=== PATIENT | male | born 1970 | race Caucasian/White ===

== ENCOUNTER 2017-01-30 14:26 | Inpatient (IN) | payer BC ==
--- NOTE | 2017-01-30 14:40 | PDOC ---
History of Present Illness - General History Source: Patient, Old Records Exam Limitations: No Limitations <Juliette Velazquez - Last Filed: 01/30/17 17:45> - General History Source: Patient Exam Limitations: No Limitations - History of Present Illness Initial Comments: 01/30/17 15:44 The patient is a 46 year old male with a significant past medical history of hypertension and diabetes mellitus, who presents to the ER with rectal pain for 10 months and a perirectal purulent abscess for 1 month. Patient states he has painful bowel movements and an accompanied fever. Patient reports having rectal bleeding at the onset of the symptoms; bleeding resolved two weeks ago. He reports using natural suppositories to reduce the pain and infection. Patient noticed that the abscess was draining yellow fluid for the past month. Patient went to Dr. Adams for the symptoms who told him he had an abscess and a fissure. Patient is scheduled to remove the abscess in three days. He says he also experiences diffuse abdominal pain. Denies nausea, vomiting, diarrhea Denies chills, coughs Denies numbness or discharge PCP: Dr. Omega Basurto <Sheryl Guillermo - Last Filed: 01/30/17 18:12> - General Chief Complaint: Abscess Boil Stated Complaint: FEVER,ABSCESS Time Seen by Provider: 01/30/17 14:40 Past History - Past Medical History Diabetes: Yes HTN: Yes - Psycho/Social/Smoking Cessation Hx Anxiety: No Suicidal Ideation: No Smoking History: Never smoked Hx Alcohol Use: No Drug/Substance Use Hx: No Substance Use Type: None <Juliette Velazquez - Last Filed: 01/30/17 17:45> <Sheryl Guillermo - Last Filed: 01/30/17 18:12> - Past Medical History Allergies/Adverse Reactions: Allergies Allergy/AdvReac Type Severity Reaction Status Date / Time No Known Allergies Allergy Verified 01/30/17 14:33 Home Medications: Ambulatory Orders Aspirin [Mera Chewable] 81 mg PO DAILY 01/30/17 Bisoprolol Fumarate [Zebeta (Nf) -] 5 mg PO DAILY 01/30/17 Dapagliflozin Propanediol [Farxiga] 10 mg PO DAILY 01/30/17 Enalapril Maleate [Vasotec -] 5 mg PO BID 01/30/17 Metformin HCl [Glucophage -] 850 mg PO BID 01/30/17 Review of Systems - Review of Systems Comments:: 01/30/17 15:45 GENERAL/CONSTITUTIONAL: Fever. No weakness. HEAD, EYES, EARS, NOSE AND THROAT: No change in vision. No ear pain or discharge. No sore throat. CARDIOVASCULAR: No chest pain or shortness of breath. RESPIRATORY: No cough, wheezing, or hemoptysis. GASTROINTESTINAL: Perirectal abscess. No nausea, vomiting, diarrhea or constipation. GENITOURINARY: No dysuria, frequency, or change in urination. MUSCULOSKELETAL: No joint or muscle swelling or pain. No neck or back pain. SKIN: No rash NEUROLOGIC: No headache, vertigo, loss of consciousness, or change in strength/ sensation. ENDOCRINE: No increased thirst. No abnormal weight change. HEMATOLOGIC/LYMPHATIC: No anemia, easy bleeding, or history of blood clots. ALLERGIC/IMMUNOLOGIC: No hives or skin allergy. <Sheryl Guillermo - Last Filed: 01/30/17 18:12> *Physical Exam - Vital Signs Last Vital Signs Temp Pulse Resp BP Pulse Ox 98.9 F 102 H 20 155/88 97 01/30/17 14:30 01/30/17 14:30 01/30/17 14:30 01/30/17 14:30 01/30/17 14:30 <Juliette Velazquez - Last Filed: 01/30/17 17:45> - Vital Signs Last Vital Signs Temp Pulse Resp BP Pulse Ox 103.3 F H 102 H 20 155/88 97 01/30/17 15:26 01/30/17 14:30 01/30/17 14:30 01/30/17 14:30 01/30/17 14:30 - Physical Exam Comments: 01/30/17 15:46 GENERAL: Awake, alert, and fully oriented, in no acute distress HEAD: No signs of trauma EYES: PERRLA, EOMI, sclera anicteric, conjunctiva clear ENT: Auricles normal inspection, hearing grossly normal, nares patent, oropharynx clear without exudates. Moist mucosa NECK: Normal ROM, supple, no lymphadenopathy, JVD, or masses LUNGS: Breath sounds equal, clear to auscultation bilaterally. No wheezes, and no crackles HEART: Regular rate and rhythm, normal S1 and S2, no murmurs, rubs or gallops ABDOMEN: Soft, nontender, normoactive bowel sounds. No guarding, no rebound. No masses EXTREMITIES: Normal range of motion, no edema. No clubbing or cyanosis. No cords, erythema, or tenderness NEUROLOGICAL: Cranial nerves II through XII grossly intact. Normal speech, normal gait SKIN: Warm, Dry, normal turgor, no rashes or lesions noted. Digital Rectal Exam: Tenderness on exam. No stool in vault, 3pm area of yellow drainage with tenderness <Uts,Sheryl - Last Filed: 01/30/17 18:12> ED Treatment Course - LABORATORY CBC & Chemistry Diagram: 01/30/17 15:24 01/30/17 15:24 <Juliette Velazquez - Last Filed: 01/30/17 17:45> - LABORATORY CBC & Chemistry Diagram: 01/30/17 15:24 01/30/17 15:24 - ADDITIONAL ORDERS Additional order review: Laboratory Results 01/30/17 15:24 Stool Occult Blood Negative 01/30/17 15:24 RBC 5.09 MCV 88.6 MCHC 33.7 RDW 13.4 MPV 9.6 Neutrophils % 86.5 H Lymphocytes % 5.6 L Monocytes % 7.6 Eosinophils % 0.1 Basophils % 0.2 - RADIOLOGY Radiograph Interpretation: 01/30/17 18:04 CT IMPRESSION reported by Dr.Ruth Gal Ruiz, D.O.: No acute abdominal or pelvic findings. No evidence of eunice-rectal abscess or abnormal fluid collection. Appendix normal. <Uts,Sheryl - Last Filed: 01/30/17 18:12> Medical Decision Making - Medical Decision Making 01/30/17 15:03 46-year-old male with history of hypertension, diabetes who presents to the emergency department with a one-month history of rectal pain and purulent drainage worsening pain today and fever to 102 at home. Differential diagnosis includes but is not limited to: Perirectal abscess, fistula, sepsis, hemorrhoids , electrolyte abnormality, dehydration, toxic/metabolic derangement. Plan: 1. Labs 2. CT scan abdomen and pelvis 3. Pain management 4. IV fluids for hydration 5. Observe and reevaluate 01/30/17 17:46 Addendum: Rectal temp was 103F. Labs were reviewed and are noted in the EMR. CT scan of the abdomen and pelvis was performed--official read is pending. Will admit to medicine, consult general surgery. <Juliette Velazquez - Last Filed: 01/30/17 17:45> *DC/Admit/Observation/Transfer - Discharge Dispostion Admit: Yes - Attestations Physician Attestion: 01/30/17 15:04 I, Dr. Juliette Velazquez, attest that the scribes documentation that appears above has been prepared under my direction and personally reviewed by me in its entirety. I confirmed that the note above accurately reflects all work, treatment, procedures, and medical decision-making performed by me. <Juliette Velazquez - Last Filed: 01/30/17 17:45> - Attestations Scribe Attestion: 01/30/17 15:47 Documentation prepared by Sheryl Guillermo, acting as medical office secretary for Juliette Velazquez MD. <Sheryl Guillermo - Last Filed: 01/30/17 18:12> Diagnosis at time of Disposition: Perirectal abscess - Discharge Dispostion Condition at time of disposition: Stable - Referrals
[2017-01-30] MEDS ORDERED: SODIUM CHLORIDE 1,000 ML IV STA (14:59)
[2017-01-30] MEDS ORDERED: KETOROLAC TROMETHAMINE 30 MG/1 ML VIAL IVPUSH ONE (14:59)
[2017-01-30] MEDS ORDERED: PIPERACILLIN/TAZOB 3.375 GM/50 ML PRE-DOCKED IV ONE (15:30)
[2017-01-30] MEDS ORDERED: KETOROLAC TROMETHAMINE 30 MG/1 ML VIAL ONE (15:36)
[2017-01-30 15:41] LABS: BASOPHIL 0.2 % (0-2.0); EOSINOPHIL 0.1 % (0-4.5); MCH 29.9 pg (25.7-33.7); MCHC 33.7 g/dl (32.0-35.9); MEAN CELL VOLUME 88.6 fl (80-96); MEAN PLT VOLUME 9.6 fl (7.5-11.1); NEUTROPHILS 86.5 % (42.8-82.8); PLATELET COUNT 182 K/MM3 (134-434); RDW 13.4 % (11.9-15.9); WHITE BLOOD COUNT 13.1 K/mm3 (4.0-10.0)
[2017-01-30 15:42] LABS: URINE APPEARANCE CLEAR; URINE BILIRUBIN NEGATIVE (NEGATIVE); URINE BLOOD NEGATIVE (NEGATIVE); URINE COLOR YELLOW; URINE GLUCOSE (UA) 3+ (NEGATIVE); URINE KETONE 1+ (NEGATIVE); URINE LEUK ESTERASE NEGATIVE (NEGATIVE); URINE NITRITE NEGATIVE (NEGATIVE); URINE PROTEIN NEGATIVE (NEGATIVE); URINE UROBILINOGEN NEGATIVE E.U./dl (0.2-1.0)
[2017-01-30 15:55] LABS: INR 1.22 (0.82-1.09); PROTHROMBIN TIME (PATIENT) 13.5 SEC (9.98-11.88)
[2017-01-30 15:58] LABS: ACTIVATED PTT 30.4 SECONDS (26.9-34.4)
[2017-01-30 16:09] LABS: ALBUMIN 4.1 g/dl (3.4-5.0); ALK PHOS 67 U/L (45-117); ANION GAP 14 (8-16); BILIRUBIN,TOTAL 0.8 mg/dL (0.2-1.0); CALCIUM 9.1 mg/dL (8.5-10.1); CO2 24 mmol/L (21-32); COCKROFT - GAULT 151; CREATININE 0.9 mg/dL (0.7-1.3); GLUCOSE,RANDOM 142 mg/dL (74-106); SGOT/AST 17 U/L (15-37); SGPT/ALT 38 U/L (12-78); TOT PROT 7.3 g/dl (6.4-8.2)
[2017-01-30] MEDS ORDERED: ACETAMINOPHEN 500 MG TABLET (FP) PO ONE (16:14)
--- NOTE | 2017-01-30 18:45 | HP ---
Admitting History and Physical - Admission Chief Complaint: rectal pain and drainage History of Present Illness: PCP : Omega Weber HPI: 46 y/o gentleman with h/o DM And HTn who presented with rectal pain and drainage . He had developed intermittent rectal bleeding for 10 months now . He describes it as BRBPR , covering the stool, and sometimes after the BM .. this bleed was associated with pain when moving bowels. in past month, he noticed daily drainage of whitish material from his rectum. He saw Dr. Garrido for this and was told he had rectal fissure and abscess. He is actually scheduled for surgical consultation with a surgeon in [place] in few days . He reports fever yesterday, no chills, denies SOB , N/V , or Abd pain. He reports NL BM for past 8 months, after starting fiber pills as he was constipated before . he denies diarrhea. He is compliant with his DM Meds and diet . Hb A1c was 10 6 months ago---> 6 about 3 months ago . 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 Medications - Allergies Allergies/Adverse Reactions: Allergies Allergy/AdvReac Type Severity Reaction Status Date / Time No Known Allergies Allergy Verified 01/30/17 14:33 - Home Medications Home Medications: Ambulatory Orders Aspirin [Mera Chewable] 81 mg PO DAILY 01/30/17 Bisoprolol Fumarate [Zebeta (Nf) -] 5 mg PO DAILY 01/30/17 Dapagliflozin Propanediol [Farxiga] 10 mg PO DAILY 01/30/17 Enalapril Maleate [Vasotec -] 5 mg PO BID 01/30/17 Metformin HCl [Glucophage -] 850 mg PO BID 01/30/17 Family Disease History - Family Disease History Other Family History: no family hx of rectal cancer or colon cancer or GI bleed Review of Systems - Review of Systems Constitutional: reports: Fever. denies: Chills, Loss of Appetite, Night Sweats , Weakness Eyes: denies: Blind Spots, Blurred Vision, Double Vision, Floaters HENT: denies: Difficult Swallowing, Ear Discharge, Ear Pain, Hearing Loss, Mouth Swelling, Throat Pain, Toothache Neck: denies: Decreased ROM, Lumps, Pain on Movement, Tenderness Cardiovascular: denies: Chest Pain, Edema, Palpitations, Shortness of Breath Respiratory: denies: Cough, Exercise Intolerance, Hemoptysis, Orthopnea, SOB, Wheezing Gastrointestinal: reports: Rectal Bleeding. denies: Abdominal Pain, Bloating, Constipation, Diarrhea, Dysphagia, Melena, Nausea, Vomiting, Vomiting Blood Genitourinary: denies: Burning, Discharge, Dysuria, Flank Pain, Frequency, Incontinence, Lesions, Testicular Swelling Breasts: reports: No Symptoms Reported Musculoskeletal: reports: No Symptoms Integumentary: denies: Bruising, Change in Color, Eczema, Erythema, Lump, Pallor Neurological: denies: Change in LOC, Change in Speech, Confusion, Dizziness, Numbness, Parasthesia, Unsteady Gait Endocrine: denies: Excessive Sweating, Flushing, Increased Hunger, Increased Thirst, Intolerance to Heat Hematology/Lymphatic: denies: Easily Bruised, Excessive Bleeding, Swollen Glands Psychiatric: reports: No Symptoms Physical Examination Vital Signs: Vital Signs Temperature 97.7 F 01/30/17 18:24 Pulse Rate 86 01/30/17 18:24 Respiratory Rate 16 01/30/17 18:24 Blood Pressure 120/77 01/30/17 18:24 O2 Sat by Pulse Oximetry (%) 97 01/30/17 18:24 Constitutional: Yes: Well Nourished, No Distress, Calm. No: Diaphoresis, Pallor Eyes: Yes: Conjunctiva Clear, EOM Intact, PERRL. No: Ptosis, Sclera Icterus HENT: Yes: Atraumatic, Normocephalic, Other (MMM). No: Drooling, Epistaxis, Hoarseness, Nasal Congestion, Pharyngeal Erythema, Rhinnorhea Neck: Yes: Supple, Trachea Midline. No: Lymphadenopathy, Tenderness Cardiovascular: Yes: Regular Rate and Rhythm, S1, S2. No: Bruit, JVD, Gallop, Murmur Respiratory: Yes: Regular, CTA Bilaterally. No: Accessory Muscle Use, Bradypnea , Cough, Diminished, Dullness, Orthopnea, Poor Air Entry, Rales, Rhonchi, SOB Gastrointestinal: Yes: Normal Bowel Sounds, Soft, Abdomen, Obese. No: Ascites, Distention, Hepatomegaly, Palpable Mass, Tenderness, Epigastrium, Tenderness, Rebound, Vomiting ...Rectal Exam: Yes: Other (Nl hair distribution. pus visible around anus . skin tag at 6 O'clock. pain with insertion of examiner finger , but no internal hemorrhoids or masses were felt. empty rectal vault . no stool came out on examiner's finger) Musculoskeletal: No: Joint Stiffness, Joint Swelling, Muscle Pain Extremities: No: Cold, Cool, Cyanosis, Erythema Edema: No Integumentary: No: Jaundice, Rash, Skin Tear, Tattoos, Onychomycosis Neurological: Yes: Alert, Oriented. No: Facial Droop, Seizure, Weakness ...Motor Strength: LUE, LLE, RUE, RLE Psychiatric: Yes: Alert, Oriented. No: Agitated, Suicidal Ideation Labs: CBC, BMP 01/30/17 15:24 01/30/17 15:24 Imaging - Results Cat Scan: Image Reviewed, Other (my review with thickening of the R anal wall. but prelim read with no thickening or abscess formation) Assessment/Plan 46 y/o gentleman with h/o DM And HTn who presented with rectal pain and drainage. 1- Rectal pain and drainage : due to the purulent drainage seen on anal area ( externally) , I suspect an abscess or a fistula . the pt meets sepsis criteria ( leukocytosis , fever , and source of infection ) currently he is hemodynamically stable - Will wait for final CT report ( on my review, there is thickening of R anal wall ) - Give zosyn - Consult ID - Consult colorectal Sx fro evaluation of rectal area ( abscess vs fistula ) - Avoid constipation - Hold asa in case a procedure is planned ( takes it primary prophylaxis ) 2- NIDDM : controlled - check A1c - hold metformin and Farxiga . - give SSI 3- HTN: - cont enalapril - We dont carry bisoprolol,. giev equevalent dose of atenolol 4- DVT px ; SCDs and ambulation. low risk Visit type - Emergency Visit Emergency Visit: Yes Care time: The patient presented to the Emergency Department on the above date and was hospitalized for further evaluation of their emergent condition. - New Patient This patient is new to me today: Yes Date on this admission: 01/30/17 - Critical Care Critical Care patient: No
[2017-01-30] MEDS ORDERED: DOCUSATE SODIUM 100 MG CAPSULE (FP) PO PRN (19:05)
[2017-01-30] MEDS ORDERED: PIPERACILLIN/TAZOB 3.375 GM 50 ML IVPB ONE (21:14)
[2017-01-30] MEDS: ENALAPRIL MALEATE 5 MG TABLET (FP) PO SCH (21:51)
[2017-01-30 22:03] VITALS: BMI 31.4
[2017-01-31] MEDS: ACETAMINOPHEN 325 MG TABLET (FP) PO PRN (01:03)
[2017-01-31] MEDS: PIPERACILLIN/TAZOB 3.375 GM 50 ML IVPB SCH ×3 (01:03→18:16)
[2017-01-31] MEDS: INSULIN SLIDING SCALE (NOVOLOG) 1 VIAL SQ SCH ×3 (06:27→18:16)
[2017-01-31 07:41] LABS: BASOPHIL 0.3 % (0-2.0); EOSINOPHIL 0.8 % (0-4.5); MCH 30.1 pg (25.7-33.7); MCHC 33.6 g/dl (32.0-35.9); MEAN CELL VOLUME 89.5 fl (80-96); MEAN PLT VOLUME 9.7 fl (7.5-11.1); NEUTROPHILS 66.8 % (42.8-82.8); PLATELET COUNT 152 K/MM3 (134-434); RDW 13.5 % (11.9-15.9); WHITE BLOOD COUNT 7.1 K/mm3 (4.0-10.0)
[2017-01-31] MEDS: ATENOLOL 50 MG TABLET (FP) PO SCH (11:08)
[2017-01-31] MEDS: ENALAPRIL MALEATE 5 MG TABLET (FP) PO SCH ×2 (11:08→21:14)
--- NOTE | 2017-01-31 15:06 | PN ---
Progress Note (short form) - Note Progress Note: Subjective: no fever or chills , feels much better today . cont to have purulent drainage from around rectum Objective: Vital Signs: Last Vital Signs Temp Pulse Resp BP Pulse Ox 98.1 F 86 16 142/79 99 01/31/17 09:47 01/31/17 09:47 01/31/17 09:47 01/31/17 09:47 01/31/17 09:00 Physical Exam: NAD , AAOx3 , pleasant CV: RRR. no MRG Lungs : CATB ext : mely dodie Abd : soft, NT, ND , NL BS Rectal exam not repeated today Labs: Laboratory Results - last 24 hr 01/30/17 01/30/17 01/30/17 15:13 15:24 15:24 WBC 13.1 H RBC 5.09 Hgb 15.2 Hct 45.1 MCV 88.6 MCHC 33.7 RDW 13.4 Plt Count 182 MPV 9.6 Neutrophils % 86.5 H Lymphocytes % 5.6 L Monocytes % 7.6 Eosinophils % 0.1 Basophils % 0.2 INR PTT (Actin FS) Sodium 138 Potassium 3.7 Chloride 100 Carbon Dioxide 24 Anion Gap 14 BUN 10 Creatinine 0.9 Creat Clearance w eGFR > 60 POC Glucometer [id number] Random Glucose 142 H Hemoglobin A1c % Lactic Acid Calcium 9.1 Phosphorus Magnesium Total Bilirubin 0.8 AST 17 ALT 38 Alkaline Phosphatase 67 Total Protein 7.3 Albumin 4.1 Urine Color Urine Appearance Urine pH Ur Specific [place]romas Urine Protein Urine Glucose (UA) Urine Ketones Urine Blood Urine Nitrite Urine Bilirubin Urine Urobilinogen Ur Leukocyte Esterase Stool Occult Blood 01/30/17 01/30/17 01/30/17 15:24 15:24 15:24 WBC RBC Hgb Hct MCV MCHC RDW Plt Count MPV Neutrophils % Lymphocytes % Monocytes % Eosinophils % Basophils % INR 1.22 H PTT (Actin FS) 30.4 Sodium Potassium Chloride Carbon Dioxide Anion Gap BUN Creatinine Creat Clearance w eGFR POC Glucometer Random Glucose Hemoglobin A1c % Lactic Acid 1.539 Calcium Phosphorus Magnesium Total Bilirubin AST ALT Alkaline Phosphatase Total Protein Albumin Urine Color Yellow Urine Appearance Clear Urine pH 5.0 Ur Specific [place] 1.038 H Urine Protein Negative Urine Glucose (UA) 3+ H Urine Ketones 1+ H Urine Blood Negative Urine Nitrite Negative Urine Bilirubin Negative Urine Urobilinogen Negative Ur Leukocyte Esterase Negative Stool Occult Blood 01/30/17 01/31/17 01/31/17 15:24 05:30 06:00 WBC 7.1 D RBC 4.65 Hgb 14.0 Hct 41.7 MCV 89.5 MCHC 33.6 RDW 13.5 Plt Count 152 MPV 9.7 Neutrophils % 66.8 D Lymphocytes % 20.1 D Monocytes % 12.0 H Eosinophils % 0.8 D Basophils % 0.3 INR PTT (Actin FS) Sodium Potassium Chloride Carbon Dioxide Anion Gap BUN Creatinine Creat Clearance w eGFR POC Glucometer 121 Random Glucose Hemoglobin A1c % Lactic Acid Calcium Phosphorus Magnesium Total Bilirubin AST ALT Alkaline Phosphatase Total Protein Albumin Urine Color Urine Appearance Urine pH Ur Specific [place]rom[place] Urine Protein Urine Glucose (UA) Urine Ketones Urine Blood Urine Nitrite Urine Bilirubin Urine Urobilinogen Ur Leukocyte Esterase Stool Occult Blood Negative 01/31/17 01/31/17 01/31/17 06:00 09:30 11:25 WBC RBC Hgb Hct MCV MCHC RDW Plt Count MPV Neutrophils % Lymphocytes % Monocytes % Eosinophils % Basophils % INR PTT (Actin FS) Sodium Potassium Chloride Carbon Dioxide Anion Gap BUN Creatinine Creat Clearance w eGFR POC Glucometer 169 Random Glucose Hemoglobin A1c % 8.3 H Lactic Acid Calcium Phosphorus 3.0 Magnesium 2.0 Total Bilirubin AST ALT Alkaline Phosphatase Total Protein Albumin Urine Color Urine Appearance Urine pH Ur Specific [place] Urine Protein Urine Glucose (UA) Urine Ketones Urine Blood Urine Nitrite Urine Bilirubin Urine Urobilinogen Ur Leukocyte Esterase Stool Occult Blood Assessment/Plan: 46 y/o gentleman with h/o DM And HTN who presented with rectal pain and drainage. 1- sepsis , due to possible rectal abscess vs eunice-rectal infection vs fistula : leukocytosis and fever improved on Abx . - cont zosyn - ID consult pending - colo-rectal sx consult pending - Avoid constipation - Hold asa in case a procedure is planned ( takes it primary prophylaxis ) 2- NIDDM : A1c 8.3 - hold metformin and Farxiga . - give SSI 3- HTN: - cont enalapril - cont atenolol in place of Bisoprolol 4- DVT px ; SCDs and ambulation. low risk Visit type - Emergency Visit Emergency Visit: Yes ED Registration Date: 01/30/17 Care time: The patient presented to the Emergency Department on the above date and was hospitalized for further evaluation of their emergent condition. - New Patient This patient is new to me today: No - Critical Care Critical Care patient: No
--- NOTE | 2017-01-31 16:46 | CONSULT ---
Consult Consult Specialty:: infectious diseases Reason for Consultation:: abscess from the gluetal region. perirectal fistula and abscess - History of Present Illness Chief Complaint: absces and pain rectal region History of Present Illness: 46 y/o gentleman with h/o DM And HTn who presented with rectal pain and drainage . patient came to the hospital because of pain and increased draiange. he mentions that it is pus draining.patient also had fever. 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 Allergies/Adverse Reactions: Allergies Allergy/AdvReac Type Severity Reaction Status Date / Time No Known Allergies Allergy Verified 01/30/17 14:33 - Home Medications Home Medications: Ambulatory Orders Aspirin [Mera Chewable] 81 mg PO DAILY 01/30/17 Bisoprolol Fumarate [Zebeta (Nf) -] 5 mg PO DAILY 01/30/17 Dapagliflozin Propanediol [Farxiga] 10 mg PO DAILY 01/30/17 Enalapril Maleate [Vasotec -] 5 mg PO BID 01/30/17 Metformin HCl [Glucophage -] 850 mg PO BID 01/30/17 Family Disease History - Family Disease History Other Family History: no family hx of rectal cancer or colon cancer or GI bleed Review of Systems - Review of Systems Constitutional: reports: Fever Eyes: reports: No Symptoms HENT: reports: No Symptoms Neck: reports: No Symptoms Cardiovascular: reports: No Symptoms Respiratory: reports: No Symptoms Gastrointestinal: reports: No Symptoms Integumentary: reports: Erythema, Other (abscess) Neurological: reports: No Symptoms Endocrine: reports: No Symptoms Hematology/Lymphatic: reports: No Symptoms Psychiatric: reports: No Symptoms Physical Exam Vital Signs: Vital Signs Temperature 98.1 F 01/31/17 15:46 Pulse Rate 70 01/31/17 15:46 Respiratory Rate 20 01/31/17 15:46 Blood Pressure 125/72 01/31/17 15:46 O2 Sat by Pulse Oximetry (%) 99 01/31/17 09:00 Constitutional: Yes: Well Nourished, Calm, Moderate Distress, Obese Eyes: Yes: Conjunctiva Clear HENT: Yes: Atraumatic, Normocephalic Neck: Yes: Supple, Trachea Midline Cardiovascular: Yes: Regular Rate and Rhythm Respiratory: Yes: Regular, CTA Bilaterally Gastrointestinal: Yes: Normal Bowel Sounds, Soft ...Rectal Exam: Yes: Other (patient has abscess over 12 0 clock position which is draining abscess i could evalaute a tract and could also see the opening send the pus for cx) Musculoskeletal: Yes: WNL Extremities: Yes: WNL Neurological: Yes: Alert, Oriented Psychiatric: Yes: Alert, Oriented Labs: CBC, BMP 01/31/17 06:00 Imaging - Results Chest X-ray: Report Reviewed, Image Reviewed Cat Scan: Report Reviewed, Image Reviewed Assessment/Plan Problem List - Problems (1) Perirectal abscess Code(s): K61.1 - RECTAL ABSCESS (2) Fissure in ano Code(s): K60.2 - ANAL FISSURE, UNSPECIFIED 3 perirectal fistula i could evaluate the tract and i am worried this could be fistula in ano plan will start patient on abx surgery to evaluate the patient rest ct current mgmt
[2017-01-31] MEDS ORDERED: PIPERACILLIN/TAZOB 3.375 GM 50 ML IVPB SCH (18:00)
[2017-01-31] MEDS ORDERED: INSULIN (NOVOLOG) ASPART 100 UNITS/ML 10ML VIAL ONE (18:19)
[2017-02-01] MEDS: PIPERACILLIN/TAZOB 3.375 GM 50 ML IVPB SCH ×3 (02:09→17:17)
[2017-02-01] MEDS: ACETAMINOPHEN 325 MG TABLET (FP) PO PRN (03:06)
[2017-02-01] MEDS: INSULIN SLIDING SCALE (NOVOLOG) 1 VIAL SQ SCH ×3 (06:29→17:16)
[2017-02-01] MEDS ORDERED: KETOROLAC TROMETHAMINE 15 MG/ML VIAL IM ONE (06:30)
--- NOTE | 2017-02-01 10:22 | CONSULT ---
Consult Consult Specialty:: colorectal surgery Reason for Consultation:: abscess/fistula/fissure - History of Present Illness Chief Complaint: sepsis and rectal pain History of Present Illness: pt is a 46M with 10 month hx of anal fissure. recently developed rectal pain and fever/chills and came to ER. Now he is draining purulent material with less pain. Of note he did get evaluated by Dr. Edward Fajardo @ [facility] who did not see abscess but prescribed calmol-4 to patient. currently he is feeling less ill but still having purulent drainage. - History Source History Provided By: Patient Limitations to Obtaining History: Language Barrier - Past Medical History Cardio/Vascular: Yes: HTN Gastrointestinal: Yes: Constipation Endocrine: Yes: Diabetes Mellitus - Past Surgical History Past Surgical History: Yes: None - Alcohol/Substance Use Hx Alcohol Use: No History of Substance Use: reports: None - Smoking History Smoking history: Never smoked - Social History ADL: Independent Occupation: officer Home Medications - Allergies Allergies/Adverse Reactions: Allergies Allergy/AdvReac Type Severity Reaction Status Date / Time No Known Allergies Allergy Verified 01/30/17 14:33 - Home Medications Home Medications: Ambulatory Orders Aspirin [Mera Chewable] 81 mg PO DAILY 01/30/17 Bisoprolol Fumarate [Zebeta (Nf) -] 5 mg PO DAILY 01/30/17 Dapagliflozin Propanediol [Farxiga] 10 mg PO DAILY 01/30/17 Enalapril Maleate [Vasotec -] 5 mg PO BID 01/30/17 Metformin HCl [Glucophage -] 850 mg PO BID 01/30/17 Family Disease History - Family Disease History Other Family History: no family hx of rectal cancer or colon cancer or GI bleed Review of Systems - Review of Systems Constitutional: reports: Chills, Fever Eyes: denies: Blind Spots, Blurred Vision HENT: denies: Difficult Swallowing, Ear Discharge Neck: denies: Decreased ROM, Lumps Cardiovascular: denies: Chest Pain, Edema Respiratory: denies: Cough, SOB Gastrointestinal: reports: Constipation, Rectal Bleeding. denies: Abdominal Pain, Bloating Genitourinary: denies: Burning, Discharge Breasts: denies: Breast Implants, Discharge from Nipple Musculoskeletal: denies: Back Pain, Crepitus Integumentary: denies: Blister, Bruising Neurological: denies: Change in LOC, Change in Speech Endocrine: denies: Excessive Sweating, Flushing Hematology/Lymphatic: denies: Easily Bruised, Excessive Bleeding Psychiatric: denies: Altered Sleep Pattern, Anxiety Physical Exam Vital Signs: Vital Signs Temperature 97.7 F 02/01/17 06:00 Pulse Rate 74 02/01/17 06:00 Respiratory Rate 18 02/01/17 06:00 Blood Pressure 104/59 02/01/17 06:00 O2 Sat by Pulse Oximetry (%) 99 01/31/17 20:56 Constitutional: Yes: No Distress, Calm Eyes: Yes: Conjunctiva Clear, EOM Intact HENT: Yes: Atraumatic, Normocephalic Neck: Yes: Supple, Trachea Midline Cardiovascular: Yes: Regular Rate and Rhythm Respiratory: Yes: Regular, CTA Bilaterally Gastrointestinal: Yes: Soft. No: Distention, Tenderness ...Rectal Exam: Yes: Other (patient with posterior midline fissure with large sentinel tag. pus draining out of both internal and external opening. external opening is near tag, internal opening is apex of fissure. copius puruence. mild induration mostly fluctuance and tenderness.) Renal/: No: CVA Tenderness - Left, CVA Tenderness - Right Musculoskeletal: No: Joint Stiffness, Joint Swelling Extremities: No: Calf Tenderness, Erythema Integumentary: No: Erythema, Rash Neurological: Yes: Alert, Oriented Psychiatric: Yes: Alert, Oriented Labs: CBC, BMP 01/31/17 06:00 Problem List - Problems (1) Perirectal abscess Code(s): K61.1 - RECTAL ABSCESS (2) Fissure in ano Assessment/Plan: patient with infected fissure vs intersphincteric abscess vs superficial abscess will examine under anesthesia tomorrow and likely perform fistulotomy explained that procedure carries small risk of incontinence but patient likely to recur without definitive procedure. can go home post procedure tentatively schedule for approx 330-4pm wednesday. npo after mn cont abx no bowel prep needed Code(s): K60.2 - ANAL FISSURE, UNSPECIFIED
[2017-02-01] MEDS: morphine CARPU-JECT 4 MG/1 ML DISP.SYRIN IVPUSH PRN (10:25)
[2017-02-01] MEDS: ENALAPRIL MALEATE 5 MG TABLET (FP) PO SCH ×2 (10:38→21:51)
[2017-02-01] MEDS: ATENOLOL 50 MG TABLET (FP) PO SCH (10:38)
--- NOTE | 2017-02-01 14:44 | PN ---
Physical Exam: SUBJECTIVE: Patient seen and examined at bedside feels well rectal pain with defecation OBJECTIVE: Vital Signs Period Temp Pulse Resp BP Sys/Soto Pulse Ox Last 24 Hr 97.7 F-98.8 F 70-74 18-20 104-131/59-79 99 GENERAL: The patient is awake, alert, and fully oriented, in no acute distress. HEAD: Normal with no signs of trauma. EYES: PERRL, extraocular movements intact, sclera anicteric, conjunctiva clear. No ptosis. ENT: Ears normal, nares patent, oropharynx clear without exudates, moist mucous membranes. NECK: Trachea midline, full range of motion, supple. LUNGS: Breath sounds equal, clear to auscultation bilaterally, no wheezes, no crackles, no accessory muscle use. HEART: Regular rate and rhythm, S1, S2 without murmur, rub or gallop. ABDOMEN: Soft, nontender, nondistended RECTAL: at three oclcok fluctuance is noted and large amount of purulent drainage is noted. 6 o'clock there is a skin tag. on Digital exam no internal hemorrhoids stool or blood noted EXTREMITIES: warm, well-perfused, no edema. NEUROLOGICAL: Cranial nerves II through XII grossly intact. Normal speech, normal gait PSYCH: Normal mood, normal affect. SKIN: Warm, dry, normal turgor Laboratory Results - last 24 hr 01/31/17 01/31/17 02/01/17 18:09 21:19 05:25 POC Glucometer 130 159 136 02/01/17 11:15 POC Glucometer 194 Active Medications Generic Name Dose Route Start Last Admin Trade Name Jonq PRN Reason Stop Dose Admin Acetaminophen 650 mg 01/30/17 18:21 02/01/17 03:06 Tylenol - PO 650 mg Q6H PRN Administration FEVER OR PAIN Atenolol 50 mg 01/31/17 10:00 02/01/17 10:38 Tenormin - PO 50 mg DAILY TRAVON Administration Docusate Sodium 100 mg 01/30/17 19:05 Colace - PO BID PRN CONSTIPATION Enalapril Maleate 5 mg 01/30/17 22:00 02/01/17 10:38 Vasotec - PO 5 mg BID TRAVON Administration Piperacillin Sod/Tazobactam Sod 50 mls @ 100 mls/hr 01/31/17 18:00 02/01/17 10: 38 Zosyn 3.375gm Ivpb (Pre-Docked) IVPB 100 mls/hr Q8H-IV TARVON Administration Protocol Insulin Aspart 1 vial 01/31/17 07:00 02/01/17 11:28 Novolog Vial Sliding Scale - SQ 2 units TIDAC TRAVON Administration Protocol Morphine Sulfate 4 mg 02/01/17 08:56 02/01/17 10:25 Morphine Injection - IVPUSH 02/02/17 08:59 4 mg Q4H PRN Administration PAIN ASSESSMENT/PLAN: 46M with history of HTN and DM presents with jayleen-rectal abscess, rectal pain, and purulent drainage. Patient states he has had this pain for about 10 months now since he was last in [place]. States he is constipated at baseline but recently has been taking fiber supplements and that has resolved. Notes intermittent rectal bleeding. Jayleen-rectal abscess: Spontaneously draining Surgical consult appreciated-will go got OR tomorrow for I&D NPO past midnight IVF past midnight Pain control Stool softeners F/U [id number] and WCx pending HTN: well controlled continue enalapril continue atenelol DM: Finger sticks well controlled Continue ISS FEN: No IVF for now no electrolyte issues Diabetic diet PPx: SCDs/ambulate No GI PPx indicated no PT consult needed-patient is ambulating Visit type - Emergency Visit Emergency Visit: Yes ED Registration Date: 01/30/17 Care time: The patient presented to the Emergency Department on the above date and was hospitalized for further evaluation of their emergent condition. - New Patient This patient is new to me today: Yes Date on this admission: 02/01/17 - Critical Care Critical Care patient: No - Discharge Referral Referred to [facility] No
--- NOTE | 2017-02-01 18:21 | PN ---
Teaching Attending Note Name of Resident: Sinan Monique ATTENDING PHYSICIAN STATEMENT I saw and evaluated the patient. I reviewed the resident's note and discussed the case with the resident. I agree with the resident's findings and plan as documented. SUBJECTIVE: no fever or chills , no abd pain , no SOB . he has rectal pain , increased today , exaggerated by a BM . OBJECTIVE: NAD , AAOx3 CV: RRR Lungs CTAB Abd : Soft , NT, ND Rectal : NL hair distribution, purulent discharge around anus from posterior small opening near skin tag . Tenderness with examiner's finger insertion. ASSESSMENT AND PLAN: 46 y/o gentleman with h/o DM And HTN who presented with rectal pain and drainage. 1- Sepsis , due to possible rectal abscess vs eunice-rectal infection vs fistula : - cont zosyn - d/w Dr. Barragan , for exploration under anesthesia tomorrow - keep NPO after MN - Avoid constipation - cont to Hold asa 2- NIDDM : A1c 8.3 - cont to hold metformin and Farxiga . - give SSI 3- HTN: - cont enalapril - cont atenolol in place of Bisoprolol 4- DVT px ; SCDs and ambulation. low risk
--- NOTE | 2017-02-01 20:20 | PN ---
Progress Note, Physician History of Present Illness: surgery note noted patient still with pain - Current Medication List Current Medications: Active Medications Acetaminophen (Tylenol -) 650 mg PO Q6H PRN PRN Reason: FEVER OR PAIN Last Admin: 02/01/17 03:06 Dose: 650 mg Atenolol (Tenormin -) 50 mg PO DAILY [facility] Last Admin: 02/01/17 10:38 Dose: 50 mg Docusate Sodium (Colace -) 100 mg PO BID PRN PRN Reason: CONSTIPATION Enalapril Maleate (Vasotec -) 5 mg PO BID [facility] Last Admin: 02/01/17 10:38 Dose: 5 mg Piperacillin Sod/Tazobactam Sod (Zosyn 3.375gm Ivpb (Pre-Docked)) 50 mls @ 100 mls/hr IVPB Q8H-IV TRAVON PRN Reason: Protocol Last Admin: 02/01/17 17:17 Dose: 100 mls/hr Insulin Aspart (Novolog Vial Sliding Scale -) 1 vial SQ TIDAC TRAVON PRN Reason: Protocol Last Admin: 02/01/17 17:16 Dose: Not Given Morphine Sulfate (Morphine Injection -) 4 mg IVPUSH Q4H PRN PRN Reason: PAIN Stop: 02/02/17 08:59 Last Admin: 02/01/17 10:25 Dose: 4 mg - Objective Vital Signs: Vital Signs Temperature 97.9 F 02/01/17 14:00 Pulse Rate 79 02/01/17 14:00 Respiratory Rate 20 02/01/17 14:00 Blood Pressure 132/78 02/01/17 14:00 O2 Sat by Pulse Oximetry (%) 100 02/01/17 09:00 Constitutional: Yes: Calm, Mild Distress Cardiovascular: Yes: Regular Rate and Rhythm Respiratory: Yes: Regular, CTA Bilaterally Gastrointestinal: Yes: Normal Bowel Sounds, Soft ...Rectal Exam: Yes: Other (pus draiang) Musculoskeletal: Yes: WNL Extremities: Yes: WNL Wound/Incision: Yes: Draining Neurological: Yes: Alert, Oriented Psychiatric: Yes: Alert, Oriented Labs: CBC, BMP 01/31/17 06:00 INR, PTT INR 1.22 (0.82-1.09) H 01/30/17 15:24 Assessment/Plan Problem List - Problems (1) Perirectal abscess Code(s): K61.1 - RECTAL ABSCESS (2) Fissure in ano Code(s): K60.2 - ANAL FISSURE, UNSPECIFIED 3 perirectal fistula plan continue abx surgery plan noted will see what findings are present
[2017-02-02] MEDS: PIPERACILLIN/TAZOB 3.375 GM 50 ML IVPB SCH ×3 (01:53→17:48)
[2017-02-02] MEDS: INSULIN SLIDING SCALE (NOVOLOG) 1 VIAL SQ SCH ×3 (06:35→17:11)
[2017-02-02] MEDS: morphine CARPU-JECT 4 MG/1 ML DISP.SYRIN IVPUSH PRN (08:14)
--- NOTE | 2017-02-02 11:54 | PN ---
Physical Exam: SUBJECTIVE: Patient seen and examined at bedside comaplins of pain with defecation but improved OBJECTIVE: Vital Signs Period Temp Pulse Resp BP Sys/Soto Pulse Ox Last 24 Hr 97.6 F-98.6 F 64-79 16-20 124-139/62-78 GENERAL: The patient is awake, alert, and fully oriented, in no acute distress. HEAD: Normal with no signs of trauma. EYES: PERRL, extraocular movements intact, sclera anicteric, conjunctiva clear. No ptosis. ENT: Ears normal, nares patent, oropharynx clear without exudates, moist mucous membranes. NECK: Trachea midline, full range of motion, supple. LUNGS: Breath sounds equal, clear to auscultation bilaterally, no wheezes, no crackles, no accessory muscle use. HEART: Regular rate and rhythm, S1, S2 without murmur, rub or gallop. ABDOMEN: Soft, nontender, nondistended RECTAL: at three oclock less fluctuance is noted no drainage was noted 6 o' clock there is a skin tag. Area is tender to palpation EXTREMITIES: warm, well-perfused, no edema. NEUROLOGICAL: Cranial nerves II through XII grossly intact. Normal speech, normal gait PSYCH: Normal mood, normal affect. SKIN: Warm, dry, normal turgor Laboratory Results - last 24 hr 02/01/17 02/02/17 17:15 06:33 POC Glucometer 147 137 Active Medications Generic Name Dose Route Start Last Admin Trade Name Freq PRN Reason Stop Dose Admin Acetaminophen 650 mg 01/30/17 18:21 02/01/17 03:06 Tylenol - PO 650 mg Q6H PRN Administration FEVER OR PAIN Atenolol 50 mg 01/31/17 10:00 02/01/17 10:38 Tenormin - PO 50 mg DAILY TRAVON Administration Docusate Sodium 100 mg 01/30/17 19:05 Colace - PO BID PRN CONSTIPATION Enalapril Maleate 5 mg 01/30/17 22:00 02/01/17 21:51 Vasotec - PO 5 mg BID TRAVON Administration Piperacillin Sod/Tazobactam Sod 50 mls @ 100 mls/hr 01/31/17 18:00 02/02/17 01: 53 Zosyn 3.375gm Ivpb (Pre-Docked) IVPB 100 mls/hr Q8H-IV TRAVON Administration Protocol Insulin Aspart 1 vial 01/31/17 07:00 02/02/17 06:35 Novolog Vial Sliding Scale - SQ Not Given TIDAC TRAVON Protocol ASSESSMENT/PLAN: 46M with history of HTN and DM presents with eunice-rectal abscess, rectal pain, and purulent drainage. Patient states he has had this pain for about 10 months now since he was last in [place]. States he is constipated at baseline but recently has been taking fiber supplements and that has resolved. Notes intermittent rectal bleeding. Eunice-rectal abscess: Spontaneously draining Surgical consult appreciated-for OR today for I&D and possible fistulotomy Pain control Stool softeners F/U [id number] and WCx pending HTN: well controlled continue enalapril continue atenelol DM: Finger sticks well controlled Continue ISS FEN: No IVF for now no electrolyte issues Diabetic diet PPx: SCDs/ambulate No GI PPx indicated no PT consult needed-patient is ambulating Should be able to discharge today post-op Visit type - Emergency Visit Emergency Visit: Yes ED Registration Date: 01/30/17 Care time: The patient presented to the Emergency Department on the above date and was hospitalized for further evaluation of their emergent condition. - New Patient This patient is new to me today: No - Critical Care Critical Care patient: No - Discharge Referral Referred to [facility] No
[2017-02-02] MEDS ORDERED: MIDAZOLAM HCL 2 MG/2 ML SINGLE DOSE VIAL ONE (12:05)
[2017-02-02] MEDS ORDERED: BUPIVACAINE HCL/PF 0.5% (5MG/ML) 10 ML VIAL ONE (12:28)
[2017-02-02] MEDS ORDERED: PROPOFOL 20 ML ONE (12:56)
[2017-02-02] MEDS ORDERED: LIDOCAINE HCL/PF 2% SDV 5ML VIAL ONE (12:56)
[2017-02-02] MEDS ORDERED: BUPIVACAINE HCL/PF 0.25% (2.5MG/ML) 10 ML VIAL IJ ONE (13:03)
--- NOTE | 2017-02-02 13:17 | OP ---
Operative Note - Note: Operative Date: 02/02/17 Pre-Operative Diagnosis: fissure/perirectal abscess Operation: fistulotomy Findings: intersphincteric abscess Post-Operative Diagnosis: Same as Pre-op Surgeon: César Barragan Anesthesia: Spinal Estimated Blood Loss (mls): 5 Operative Report Dictated: Yes
[2017-02-02] MEDS ORDERED: ONDANSETRON 4 MG/2 ML VIAL IVPUSH PRN (13:21)
[2017-02-02] MEDS ORDERED: LACTATED RINGERS SOLUTION 1,000 ML IV SCH (13:30)
[2017-02-02] MEDS ORDERED: DOCUSATE SODIUM 100 MG CAPSULE (FP) PO PRN (13:30)
[2017-02-02] MEDS ORDERED: ACETAMINOPHEN 325 MG TABLET (FP) PO PRN (13:30)
[2017-02-02] MEDS ORDERED: BUPIVACAINE HCL/PF 0.25% (2.5MG/ML) 10 ML VIAL ONE (13:40)
--- NOTE | 2017-02-02 14:34 | OP ---
DATE OF OPERATION: 02/02/2017 PREOPERATIVE DIAGNOSIS: Anal fissure with a perirectal abscess. POSTOPERATIVE DIAGNOSIS: Anal fissure with a perirectal abscess with intersphincteric abscess as detail. PROCEDURE: Fistulotomy. ANESTHESIA: Spinal. OPERATIVE NOTE: Patient was brought into the operating room given spinal anesthetic and then placed in prone oneida knife position. I taped his buttocks apart and prepped and draped in the usual sterile fashion. A timeout was then performed. A lacrimal probe was placed through the external opening, which was just outside his sentinel tag just to the right and the internal opening was in the posterior midline. I placed the lacrimal probe through it. It came out through the fissure and I assessed that this was very little muscle and therefore felt that it was safe to cut also before I pushed the lacrimal probe through the external opening into the internal opening. There were copious amounts of purulent material draining out of the internal opening. Once I placed the lacrimal probe with ease through the fistula and flat abscess tract, I then used electrocautery to complete the fistulotomy and then I palpated the abscess cavity and it was indeed smooth. At this point, I then used electrocautery to cut off the sentinel tag and sent it off for permanent examination. I then debrided the abscess cavity with a gauze pad a couple of times and then used electrocautery to achieve hemostasis. I then injected 8 mL of 0.25% Marcaine around the incision and then placed a dry sterile dressing on the wound and the patient was sent to the recovery room in stable condition. ALEJANDRA ROSENTHAL M.D. [id number]
[2017-02-02] MEDS: ENALAPRIL MALEATE 5 MG TABLET (FP) PO SCH (14:58)
[2017-02-02] MEDS: ATENOLOL 50 MG TABLET (FP) PO SCH (14:58)
--- NOTE | 2017-02-02 15:24 | PN ---
Teaching Attending Note Name of Resident: Sinan Monique ATTENDING PHYSICIAN STATEMENT I saw and evaluated the patient. I reviewed the resident's note and discussed the case with the resident. I agree with the resident's findings and plan as documented. SUBJECTIVE: no fever or chills , no abd pain. rectal pain improved. OBJECTIVE: NAD CV : RRR lungs : CTAB ext : no edema Abd : soft, NT, ND , NL BS ASSESSMENT AND PLAN: 46 y/o gentleman with h/o DM And HTN who presented with rectal pain and drainage. 1- Sepsis , due to possible rectal abscess and fistula: s/p fistulotomy today - cont zosyn. will switch to po abx tomorrow, likely can use levaquin + flagyl Or Augmentin x 1 week - resume diet and cont bowel regimen - can resume aspirin at dc 2- NIDDM : A1c 8.3 - cont to hold metformin and Farxiga . - give SSI 3- HTN: - cont enalapril - cont atenolol in place of Bisoprolol 4- DVT px ; SCDs and ambulation. low risk will dc tomorrow on PO abx F/u with Dr. Barragan
--- NOTE | 2017-02-02 23:27 | PN ---
Progress Note, Physician History of Present Illness: patient doing well stable post op for fissure in ano no complaints - Current Medication List Current Medications: Active Medications Acetaminophen (Tylenol -) 650 mg PO Q6H PRN PRN Reason: FEVER OR PAIN Atenolol (Tenormin -) 50 mg PO DAILY [facility] Docusate Sodium (Colace -) 100 mg PO BID PRN PRN Reason: CONSTIPATION Enalapril Maleate (Vasotec -) 5 mg PO BID [facility] Last Admin: 02/02/17 21:35 Dose: 5 mg Fentanyl (Sublimaze Injection -) 25 mcg IVPUSH [id number] PRN PRN Reason: PAIN Stop: 02/05/17 13:22 Piperacillin Sod/Tazobactam Sod (Zosyn 3.375gm Ivpb (Pre-Docked)) 50 mls @ 100 mls/hr IVPB Q8H-IV TRAVON PRN Reason: Protocol Last Admin: 02/02/17 17:48 Dose: 100 mls/hr Insulin Aspart (Novolog Vial Sliding Scale -) 1 vial SQ TIDAC [facility] PRN Reason: Protocol Last Admin: 02/02/17 17:11 Dose: 2 units - Objective Vital Signs: Vital Signs Temperature 98.3 F 02/02/17 17:57 Pulse Rate 75 02/02/17 17:57 Respiratory Rate 18 02/02/17 17:57 Blood Pressure 122/74 02/02/17 17:57 O2 Sat by Pulse Oximetry (%) 95 02/02/17 14:25 Constitutional: Yes: No Distress, Calm Cardiovascular: Yes: Regular Rate and Rhythm Gastrointestinal: Yes: Normal Bowel Sounds, Soft Musculoskeletal: Yes: WNL Extremities: Yes: WNL Integumentary: Yes: Other Wound/Incision: Yes: Dressing Dry and Intact, Other Neurological: Yes: Alert, Oriented Psychiatric: Yes: Alert, Oriented Labs: CBC, BMP 01/31/17 06:00 INR, PTT INR 1.22 (0.82-1.09) H 01/30/17 15:24 Assessment/Plan Problem List - Problems (1) Perirectal abscess Code(s): K61.1 - RECTAL ABSCESS (2) Fissure in ano Code(s): K60.2 - ANAL FISSURE, UNSPECIFIED 3 perirectal fistula plan continue abx can switch to oral augmentin and clinda on discharge [id number] twice a day for 5 and clinda 300 mg every 8 hourly for 5 days rest as per surgery
[2017-02-03] MEDS: PIPERACILLIN/TAZOB 3.375 GM 50 ML IVPB SCH ×2 (01:42→09:48)
[2017-02-03] MEDS: INSULIN SLIDING SCALE (NOVOLOG) 1 VIAL SQ SCH (06:15)
[2017-02-03 06:26] VITALS: BP 136/74; PULSE 70; TEMP 97.9
--- NOTE | 2017-02-03 08:27 | PN ---
Teaching Attending Note Name of Resident: Sinan Monique ATTENDING PHYSICIAN STATEMENT I saw and evaluated the patient. I reviewed the resident's note and discussed the case with the resident. I agree with the resident's findings and plan as documented. Patient is feeling better with no acute distress. No pain, comfortable, wants to go home. Vital Signs Temperature 97.9 F 02/03/17 06:00 Pulse Rate 70 02/03/17 06:00 Respiratory Rate 18 02/03/17 06:00 Blood Pressure 136/74 02/03/17 06:00 O2 Sat by Pulse Oximetry (%) 96 02/02/17 21:00 CBCD WBC 7.1 K/mm3 (4.0-10.0) D 01/31/17 06:00 RBC 4.65 M/mm3 (4.00-5.60) 01/31/17 06:00 Hgb 14.0 GM/dL (11.7-16.9) 01/31/17 06:00 Hct 41.7 % (35.4-49) 01/31/17 06:00 MCV 89.5 fl (80-96) 01/31/17 06:00 MCHC 33.6 g/dl (32.0-35.9) 01/31/17 06:00 RDW 13.5 % (11.9-15.9) 01/31/17 06:00 Plt Count 152 K/MM3 (134-434) 01/31/17 06:00 MPV 9.7 fl (7.5-11.1) 01/31/17 06:00 CMP Sodium 138 mmol/L (136-145) 01/30/17 15:24 Potassium 3.7 mmol/L (3.5-5.1) 01/30/17 15:24 Chloride 100 mmol/L (98-107) 01/30/17 15:24 Carbon Dioxide 24 mmol/L (21-32) 01/30/17 15:24 Anion Gap 14 (8-16) 01/30/17 15:24 BUN 10 mg/dL (7-18) 01/30/17 15:24 Creatinine 0.9 mg/dL (0.7-1.3) 01/30/17 15:24 Creat Clearance w eGFR > 60 (>60) 01/30/17 15:24 Random Glucose 142 mg/dL (74-106) H 01/30/17 15:24 Calcium 9.1 mg/dL (8.5-10.1) 01/30/17 15:24 Total Bilirubin 0.8 mg/dL (0.2-1.0) 01/30/17 15:24 AST 17 U/L (15-37) 01/30/17 15:24 ALT 38 U/L (12-78) 01/30/17 15:24 Alkaline Phosphatase 67 U/L (45-117) 01/30/17 15:24 Total Protein 7.3 g/dl (6.4-8.2) 01/30/17 15:24 Albumin 4.1 g/dl (3.4-5.0) 01/30/17 15:24 Current Medications Generic Name Dose Route Start Last Admin Trade Name Freq PRN Reason Stop Dose Admin Acetaminophen 650 mg 02/02/17 13:30 Tylenol - PO Q6H PRN FEVER OR PAIN Atenolol 50 mg 02/03/17 10:00 Tenormin - PO DAILY [facility] Docusate Sodium 100 mg 02/02/17 13:30 Colace - PO BID PRN CONSTIPATION Enalapril Maleate 5 mg 02/02/17 22:00 02/02/17 21:35 Vasotec - PO 5 mg BID [facility] Administration Fentanyl 25 mcg 02/02/17 13:21 Sublimaze Injection - IVPUSH 02/05/17 13:22 [id number] PRN PAIN Piperacillin Sod/Tazobactam Sod 50 mls @ 100 mls/hr 02/02/17 18:00 02/03/17 01: 42 Zosyn 3.375gm Ivpb (Pre-Docked) IVPB 100 mls/hr Q8H-IV TRAVON Administration Protocol Insulin Aspart 1 vial 02/02/17 16:30 02/03/17 06:15 Novolog Vial Sliding Scale - SQ Not Given TIDAC [facility] Protocol Home Medications Medication Instructions Recorded Aspirin [Mera Chewable] 81 mg PO DAILY 01/30/17 Bisoprolol Fumarate [Zebeta (Nf) -] 5 mg PO DAILY 01/30/17 Dapagliflozin Propanediol [Farxiga] 10 mg PO DAILY 01/30/17 Enalapril Maleate [Vasotec -] 5 mg PO BID 01/30/17 Metformin HCl [Glucophage -] 850 mg PO BID 01/30/17 Lidocaine 5% Top. Ointment 1 applic TP QID #1 tube 02/02/17 [Xylocaine 5% Top. Ointment -] Oxycodone HCl/Acetaminophen 1 tab PO Q4H #20 tablet MDD 6 02/02/17 [Percocet 5-325 mg Tablet] S/p I&D of eunice-rectal abscess. the wound looks clean ASSESSMENT AND PLAN: Patient is a 46 y/o gentleman with h/o DM And HTN who presented with rectal pain and drainage. # S/P I&D of perirectal abscess ,wound is clean, follow up with in a week period s/p IV antibiotic zosyn received for 4 days of IV antibiotic. will discharge him with 3 more days of Augmentin.( total of 7 days) Discussed with # T2DM with A1c 8.3 continue metformin and Farxiga . # HTN controlled , continue home meds. discharge patient home.
--- NOTE | 2017-02-03 09:11 | DS ---
Physical Exam: SUBJECTIVE: Patient seen and examined at bedside feels well wants to go home OBJECTIVE: Vital Signs Period Temp Pulse Resp BP Sys/Soto Pulse Ox Last 24 Hr 97.6 F-98.3 F 63-76 16-20 114-136/68-77 95-97 PHYSICAL EXAM GENERAL: The patient is awake, alert, and fully oriented, in no acute distress. HEAD: Normal with no signs of trauma. EYES: PERRL, extraocular movements intact, sclera anicteric, conjunctiva clear. No ptosis. ENT: Ears normal, nares patent, oropharynx clear without exudates, moist mucous membranes. NECK: Trachea midline, full range of motion, supple. LUNGS: Breath sounds equal, clear to auscultation bilaterally, no wheezes, no crackles, no accessory muscle use. HEART: Regular rate and rhythm, S1, S2 without murmur, rub or gallop. ABDOMEN: Soft, nontender, nondistended RECTAL: Wound is drianing minimal amount of sersangenous discharge EXTREMITIES: warm, well-perfused, no edema. NEUROLOGICAL: Cranial nerves II through XII grossly intact. Normal speech, normal gait PSYCH: Normal mood, normal affect. SKIN: Warm, dry, normal turgor LABS Laboratory Results - last 24 hr 02/02/17 02/03/17 17:06 06:13 POC Glucometer 166 132 HOSPITAL COURSE: Date of Admission:01/30/17 Date of Discharge: 02/03/17 46M with history of hypertension and diabetes admitted to the hospital with eunice -rectal abscess. Had a CT scan done which did not help much with the diagnosis, however clinically patient was septic on arrival. He was seen by infectious disease and started on Zosyn. Taken to the operating room by Dr. Barragan and he had an incision and drainage of intersphinteric abscess and also had a fistulotomy. Patient is stable for discharge on PO ABx for 3 more days to complete a 7 day course. Minutes to complete discharge: 50 Discharge Summary Reason For Visit: PERIRECTAL ABSCESS Current Active Problems Fissure in ano (Acute) Hypertension (Acute) Perirectal abscess (Acute) Diabetes (Chronic) Condition: Stable - Instructions Diet, Activity, Other Instructions: buy alot of 4x4 gauze pad. remove dressing later at home. easier to take off in shower. rinse area with warm water. Use one piece and fold it in half and place it over anus. just put underwear on and this should secure the gauze. probably need to change gauze every 4 hours or when it is soaked. it should bleed and drain for approximately 2 weeks or more. if you need to have bowel movement, remove gauze, have bowel movement, wipe as you normally would and then replace gauze. if you are concerned about fecal matter in wound, you can rinse off in shower. for pain you can apply topical lidocaine every 4 hours as needed. pain mediciation will also be prescribed and please take a laxative like miralax or colace with this. call my office to follow up next wednesday [phone] (Dr. Barragan) The above instructions are from your surgeon. please follow them continue your home medications eat a low carbohydrate low sugar diet shower as needed and let soap and water rinse through ther wound follow up with the surgeon follow up with your primary care doctor Take the antibiotics for 3 more days It was a pleasure taking care of you. Dr. Sinan Lockwood Summary: 46M with history of hypertension and diabetes admitted to the hospital with eunice -rectal abscess. Had a CT scan done which did not help much with the diagnosis, however clinically patient was septic on arrival. He was seen by infectious disease and started on Zosyn. Taken to the operating room by Dr. Barragan and he had an incision and drainage of intersphinteric abscess and also had a fistulotomy. Patient is stable for discharge on PO ABx for 3 more days to complete a 7 day course. Referrals: César Barragan MD [Staff Physician] - 1 Week Miki Crow [Primary Care Provider] - 1 Week Disposition: HOME - Home Medications Comprehensive Discharge Medication List: Ambulatory Orders Aspirin [Mera Chewable Aspirin] 81 mg PO DAILY 01/30/17 Bisoprolol Fumarate [Zebeta (Nf) -] 5 mg PO DAILY 01/30/17 Dapagliflozin Propanediol [Farxiga] 10 mg PO DAILY 01/30/17 Enalapril Maleate [Vasotec -] 5 mg PO BID 01/30/17 Metformin HCl [Glucophage -] 850 mg PO BID 01/30/17 Lidocaine 5% Top. Ointment [Xylocaine 5% Top. Ointment -] 1 applic TP QID #1 tube 02/02/17 Oxycodone HCl/Acetaminophen [Percocet 5-325 mg Tablet] 1 tab PO Q4H #20 tablet MDD 6 02/02/17 Amox-Tr/K Cl [Augmentin - 875Mg Tablet] 1 tab PO BID #6 tablet 02/03/17 Docusate Sodium [Colace -] 100 mg PO BID PRN #100 cap 02/03/17 This patient is new to me today: No Emergency Visit: Yes ED Registration Date: 01/30/17 Care time: The patient presented to the Emergency Department on the above date and was hospitalized for further evaluation of their emergent condition. Critical Care patient: No - Discharge Referral Referred to [facility] Med P.C.: No
[2017-02-03] MEDS ORDERED: ATENOLOL 50 MG TABLET (FP) PO SCH (10:00)
--- NOTE | 2017-02-05 13:22 | PATH ---
Surgical Pathology Report Patient Name: JIM CASTLE Med. Rec. #: [id number] /Age/Gender: 1970 (Age: 46) / M Account: [id number] Location: [facility] MED/SURG Taken: 02/02/2017 Received: 02/03/2017 Reported: 02/05/2017 Physicians: César Barragan MD Specimen(s) Received ANAL TAG Clinical History Intrasenteric abscess (anal) Final Diagnosis ANAL TAG, EXCISION: BENIGN SKIN WITH HYPERPLASTIC SQUAMOUS EPITHELIUM AND SQUAMOUS LINING WITH ACTIVE AND CHRONIC INFLAMMATION, SUGGESTIVE OF SINUS/FISTULA TRACT. NO DYSPLASIA OR CARCINOMA IDENTIFIED (SEE COMMENT). Comment: HPV studies performed and interpreted at [place], [place] ([id number]) are negative fro HPV WSS (HPV subtypes 6,11,16,18,31,33,and 51) , negative for high risk HPV (16/18) and negative for low risk HPV (6/11). Electronically Signed Dain Ferguson M.D. Gross Description Received in formalin labeled "anal tag" is a 0.8 x 0.5 x 0.4 cm brown, polypoid portion of skin. The base is inked green and the specimen is bisected and entirely submitted in one cassette. 02/03/201702/03/2017
== END 2017-02-03 10:39 | disposition home or self-care (01) | DRG 989 ==
LOC: JER 14:26 → JERBED 17:47 → J7W 21:25
PROVIDERS: ADMIT Internal Medicine; ATTEND Internal Medicine
PROC: 0H99XZZ Drainage of Perineum Skin, External Approach (ICD-10-PCS; principal; 2017-02-02 15:00)
DX: K61.1 Rectal abscess (principal); I10 Essential (primary) hypertension; E11.9 Type 2 diabetes mellitus without complications; K59.09 Other constipation
CPT/HCPCS: 36415; 71010-TC; 74177-TC; 80053; 81003; 82272; 83036; 83605; 83735; 84100; 85025; 85610; 85730; 87040; 87070; 87086; 87186; 87205; 88305-TC; 94760; 99285-25